=== PATIENT | male | born 1965 | race Caucasian/White ===

== ENCOUNTER 2022-01-14 19:17 | Emergency (ER) | payer SELFPAY ==
[~2022-01-14] VITALS: Ht 177.8 cm; Wt 93.0 kg
--- NOTE | 2022-01-14 19:20 | NUR ---
Patient to ER bed HEATH to gown for evaluation. Side rails up.
--- NOTE | 2022-01-14 20:00 | NUR ---
PT BROUGHT IN BY PD FOR OKAY TO BOOK. PT DENIES HAVING CP, N/V, DIARRHEA. NO SIGNS OF PAIN, NO SIGNS OF RESP DISTRESS. EVEN AND UNLABORED RESPIRATIONS.
[2022-01-14 20:08] VITALS: BP_SYST 160
--- NOTE | 2022-01-14 20:10 | NUR ---
ER Dr.DELA CADET at bedside examining patient.
--- NOTE | 2022-01-14 20:22 | NUR ---
Patient given written and verbal discharge instructions and verbalizes understanding. ER MD discussed with patient the results and treatment provided. Patient in stable condition. ID arm band removed. NO Rx of given. Patient educated on pain management and to follow up with PMD. Pain Scale 0/10. Opportunity for questions provided and answered. Medication side effect fact sheet provided.
--- NOTE | 2022-01-14 20:22 | NUR ---
Note undone in EDM - 01/14/22 at 2023 by [email or web address] PT BROUGHT IN BY PD FOR OKAY TO BOOK. PT DENIES HAVING CP, N/V, DIARRHEA. NO SIGNS OF PAIN, NO SIGNS OF RESP DISTRESS. EVEN AND UNLABORED RESPIRATIONS.
[2022-01-14 20:26] VITALS: BP_SYST 157
== END 2022-01-14 20:22 ==
LOC: SED 19:17
DX: Z02.89 Encounter for other administrative examinations (principal)
CPT/HCPCS: 99283